=== PATIENT | female | born 1970 | race Caucasian/White ===

== ENCOUNTER → 2016-05-23 | Outpatient (CLI) | payer OTHER ==
[~2016-05-23] MED LIST: ALBUAER19 INH; DEXL60CA4 PO; EFFSR/75 PO; ERGO1CAP41 PO; INDSR60 PO; LEVO25TA PO; MRLP527 PO; ONDA4TAB46 PO; RANI300T PO; SERT-234 PO
== END | disposition home or self-care (01) ==
LOC: C.LAB1850 15:20
PROVIDERS: ATTEND Internal Medicine
DX: E03.9 Hypothyroidism, unspecified (principal)

== ENCOUNTER → 2016-06-28 | Outpatient (CLI) | payer OTHER | END | disposition home or self-care (01) | LOC: C.LABMFLN 07:54 | PROVIDERS: ATTEND Internal Medicine | DX: E03.9 Hypothyroidism, unspecified (principal) ==

== ENCOUNTER → 2016-09-22 | Outpatient (CLI) | payer OTHER ==
[~2016-09-22] MED LIST changes: -ERGO1CAP41 PO; +ERGO500011 PO; -INDSR60 PO; +PROP60CA PO
--- NOTE | 2016-09-26 14:58 | MAMMOGRAPHY REPORT ---
BILATERAL DIGITAL SCREENING MAMMOGRAM TOMOSYNTHESIS WITH CAD: 09/22/2016 CLINICAL HISTORY: Routine screening. Patient has no complaints. TECHNIQUE: Breast tomosynthesis in addition to standard 2D mammography was performed. Current study was also evaluated with a Computer Aided Detection (CAD) system. COMPARISON: Comparison is made to exams dated: 06/27/2013 mammogram, 12/24/2012 mammogram, and 013 mammogram - [facility]. BREAST COMPOSITION: The tissue of both breasts is heterogeneously dense, which may obscure small ma sses. FINDINGS: No suspicious masses, calcifications, or areas of architectural distortion are noted in e ither breast. There has been no significant interval change compared to prior exams. Rounded 13 mm asymmetry within the right lateral breast middle depth on the cc view appears similar to the 2013 ex am and has the appearance of normal fibroglandular tissue on the tomosynthesis images. IMPRESSION: ACR BI-RADS CATEGORY 2: BENIGN There is no mammographic evidence of malignancy. A 1 year screening mammogram is recommended. The p atient will receive written notification of the results. Approximately 10% of breast cancers are not detected with mammography. A negative mammographic repor t should not delay biopsy if a clinically suggestive mass is present. Shayna Ortega M.D. ah/:09/22/2016 15:30:29 Insurance Risk Manager: [employer] [place](Alex)(M), [facility] letter sent: Normal 1/2 BI-RADS Code: ACR BI-RADS Category 2: Benign
== END | disposition home or self-care (01) ==
LOC: C.MAMM 13:13
PROVIDERS: ATTEND Internal Medicine
DX: Z12.31 Encounter for screening mammogram for malignant neoplasm of breast (principal)

== ENCOUNTER → 2016-09-22 | Outpatient (CLI) | payer OTHER ==
--- NOTE | 2016-09-22 09:51 | DIAGNOSTIC IMAGING REPORT ---
RIGHT ELBOW MIN 3 VIEWS ROUTINE CLINICAL HISTORY: M25.529 Elbow [id number] Right COMPARISON: None. DISCUSSION: The bones and joint spaces appear intact. There is no evidence of fracture, dislocation or bony disease. There is no evidence for soft tissue swelling. IMPRESSION: Negative study. Electronically signed by: Carroll Phipps M.D. 09/22/2016 9:50 AM Dictated Date/Time: 09/22/2016 9:49 AM
== END | disposition home or self-care (01) ==
LOC: C.RAD1850 09:37
PROVIDERS: ATTEND Physician Assistant
DX: M25.521 Pain in right elbow (principal)

== ENCOUNTER → 2016-12-27 | Day surgery (SDC) | payer OTHER ==
[2016-12-25 13:08] VITALS: Ht 162.6 cm; Wt 86.4 kg
[~2016-12-27] VITALS: Ht 162.6 cm; Wt 86.4 kg
[~2016-12-27] MED LIST changes: -EFFSR/75 PO; +ERGO1CAP41 PO; -ERGO500011 PO; +INDSR60 PO; -PROP60CA PO; +PROPOFOL IV EMULSION 10 MG/ML 20 ML VIAL IV ONE; +SODIUM CHLORIDE 0.9% 500ML 500 ML IV ONE
--- NOTE | 2016-12-27 14:12 | Endo History and Physical ---
History & Physical Date of Service: Dec 27, 2016. Chief Complaint: acid reflux,abd.and epigastric pain,bloating Referring Physician: Dr. Saldaña History of Present Illness 46 yo CF who presents for EGD secondary to GERD, epigastric abdominal pain and bloating. Past Medical History Arthritis, Anxiety, Reflux, Thyroid Disease Past Surgical History Hx Cardiac Surgery: No Hx Internal Defibrillator: No Hx Pacemaker: No Hx Abdominal Surgery: Yes (ROMA BSO, ECHO) Hx of Implantable Prosthesis: No Hx Post-Op Nausea and Vomiting: Yes Hx Cancer Surgery: No Hx Thoracic Surgery: No Hx Orthopedic: Yes (RT KNEE SURGERY) Hx Urinary Tract Surgery: No Family History Esophogeal CA, Polyp Social History Smoking Status: Former Smoker Hx Substance Use: No Hx Alcohol Use: Yes ("RARELY") Allergies Coded Allergies: Codeine (Verified Allergy, Unknown, GI UPSET, 12/25/16) Cortisone (Verified Allergy, Unknown, LOCAL SWELLING, 12/25/16) Metoclopramide (Verified Allergy, Unknown, DYSKINESIA, 12/27/16) Morphine (Verified Allergy, Unknown, GI UPSET, 12/27/16) Meperidine (Verified Adverse Reaction, Severe, SEVERE NAUSEA AND VOMITING , 12/25/16) Unclassified Drugs (Verified Adverse Reaction, Mild, Neoprene - rash, 12/25) Hydrocodone (Verified Adverse Reaction, Unknown, MEMORY LOSS, 12/25/16) Current Medications Reported Home Medications Medications Dose Route/Sig Max Daily Dose Days Date Category Dose Instructions Propranolol HCl ER (Propranolol HCl) 60 Mg Cap 1 Tab PO HS 12/25/16 Reported Zoloft (Sertraline HCl) 100 Mg Tab 1.5 Tab PO HS 12/25/16 Reported Ventolin Inhaler (Albuterol) Aers 2 Puffs INH Q4 PRN 07/27/14 Reported Polyethylene Glycol 3350 (Polyethylene) 527 Gm Soln 0.5-1 Dose PO DAILY PRN 07/27/14 Reported Zofran (Ondansetron HCl) 4 Mg Tab 4 Mg PO Q8 PRN 07/27/14 Reported Vitamin D 10858 Unit (Ergocalciferol) 50,000 Unit Cap 1 Tab PO WK 10/06/13 Reported TAKE ON WEDNESDAYS Synthroid (Levothyroxine Sodium) 25 Mcg Tab 25 Mcg PO QAM 10/06/13 Reported Zantac (Ranitidine Hcl) 300 Mg Tab 300 Mg PO HS 10/06/13 Reported Dexilant (Dexlansoprazole) 60 Mg Cap 60 Mg PO QAM 10/06/13 Reported Vital Signs Weight (Kilograms): 86.36 Height (Feet): 5 Height (Inches): 4 Date Time Temp Pulse Resp B/P (MAP) Pulse Ox O2 Delivery O2 Flow Rate FiO2 12/27/16 13:42 36.9 66 20 103/75 (84) 97 Room Air Physical Exam General Appearance: WD/WN, no apparent distress Respiratory/Chest: Auscultation: breath sounds normal Cardiovascular: Heart Auscultation: RRR Abdomen: Bowel Sounds: normal Inspection & Palpation: soft, non-distended, no tenderness, guarding & rebound Assessment and Plan Assessment: 46 yo CF who presents for EGD secondary to GERD, epigastric abdominal pain and bloating. Plan: Proceed with EGD.
--- NOTE | 2016-12-27 14:45 | GI REPORT ---
Procedure Date: 12/27/2016 2:15 PM Procedure: Upper GI endoscopy Indications: Epigastric abdominal pain, Gastro-esophageal reflux disease Medicines: Monitored Anesthesia Care Complications: No immediate complications. Estimated Blood Loss: Estimated blood loss: none. Procedure: Pre-Anesthesia Assessment: - Prior to the procedure, a History and Physical was performed, and patient medications and allergies were reviewed. The patient's tolerance of previous anesthesia was also reviewed. The risks and benefits of the procedure and the sedation options and risks were discussed with the patient. All questions were answered, and informed consent was obtained. Prior Anticoagulants: The patient has taken no previous anticoagulant or antiplatelet agents. ASA Grade Assessment: II - A patient with mild systemic disease. After reviewing the risks and benefits, the patient was deemed in satisfactory condition to undergo the procedure. After obtaining informed consent, the endoscope was passed under direct vision. Throughout the procedure, the patient's blood pressure, pulse, and oxygen saturations were monitored continuously. The scope was introduced through the mouth, and advanced to the second part of duodenum. The upper GI endoscopy was accomplished without difficulty. The patient tolerated the procedure well. Findings: The esophagus was normal. A medium-sized hiatus hernia was present. Localized mild inflammation characterized by erythema was found in the gastric antrum. Biopsies were taken with a cold forceps for histology. The examined duodenum was normal. Impression: - Normal esophagus. - Medium-sized hiatus hernia. - Gastritis. Biopsied. - Normal examined duodenum. Recommendation: - Resume previous diet. - Continue present medications. - Await pathology results. - Return to primary care physician as previously scheduled. Abel Aragon, DO 12/27/2016 2:45:13 PM This report has been signed electronically. Note Initiated On: 12/27/2016 2:15 PM I attest to the content of the Intraoperative Record and orders documented therein, exceptions below
--- NOTE | 2016-12-27 14:47 | Discharge Instructions ---
Endoscopy Patient Instructions Date / Procedure(s) Performed Dec 27, 2016. EGD Allergy Information Coded Allergies: Codeine (Verified Allergy, Unknown, GI UPSET, 12/25/16) Cortisone (Verified Allergy, Unknown, LOCAL SWELLING, 12/25/16) Metoclopramide (Verified Allergy, Unknown, DYSKINESIA, 12/27/16) Morphine (Verified Allergy, Unknown, GI UPSET, 12/27/16) Meperidine (Verified Adverse Reaction, Severe, SEVERE NAUSEA AND VOMITING , 12/25/16) Unclassified Drugs (Verified Adverse Reaction, Mild, Neoprene - rash, 12/25) Hydrocodone (Verified Adverse Reaction, Unknown, MEMORY LOSS, 12/25/16) Discharge Date / Findings Dec 27, 2016. Gastritis s/p biopsies Hiatal hernia Medication Instructions OK to resume all medications today as prescribed Reported Home Medications Medications Dose Route/Sig Max Daily Dose Days Date Category Dose Instructions Propranolol HCl ER (Propranolol HCl) 60 Mg Cap 1 Tab PO HS 12/25/16 Reported Zoloft (Sertraline HCl) 100 Mg Tab 1.5 Tab PO HS 12/25/16 Reported Ventolin Inhaler (Albuterol) Aers 2 Puffs INH Q4 PRN 07/27/14 Reported Polyethylene Glycol 3350 (Polyethylene) 527 Gm Soln 0.5-1 Dose PO DAILY PRN 07/27/14 Reported Zofran (Ondansetron HCl) 4 Mg Tab 4 Mg PO Q8 PRN 07/27/14 Reported Vitamin D 83224 Unit (Ergocalciferol) 50,000 Unit Cap 1 Tab PO WK 10/06/13 Reported TAKE ON WEDNESDAYS Synthroid (Levothyroxine Sodium) 25 Mcg Tab 25 Mcg PO QAM 10/06/13 Reported Zantac (Ranitidine Hcl) 300 Mg Tab 300 Mg PO HS 10/06/13 Reported Dexilant (Dexlansoprazole) 60 Mg Cap 60 Mg PO QAM 10/06/13 Reported Provider Instructions Activity Restrictions - No exercising or heavy lifting for 24 hours. - Do not drink alcohol the day of the procedure. - Do not drive a car or operate machinery until the day after the procedure. - Do not make any important decisions or sign important papers in 24 hours after the procedure. Following Day: - Return to full activity which may include returning to work/school. Diet Start your diet with liquids and light foods (jello, soup, juice, toast). Then eat your usual diet if not nauseated. Treatment For Common After Affects For mild abdominal pain, bloating, or excessive gas: - Rest - Eat lightly - Lie on right side Follow-Up Information Follow-up with Dr. Saldaña as scheduled Anesthesia Information What You Should Know You have had a procedure that required some medicine to reduce anxiety and discomfort. This treatment is called moderate sedation. After receiving the treatment, you may be sleepy, but you will be able to breathe on your own. The effects of the treatment may last for several hours. Follow these instructions along with Activity/Diet recommendations noted above: * Do NOT do anything where dizziness or clumsiness would be dangerous. * Rest quietly at home today, then you can be up and about tomorrow. * Have a responsible person stay with you the rest of today. * You may have had an I.V. today. If so, you may take the dressing off later today. Recommendations Call your doctor if: * Trouble breathing * Continuous vomiting for more than 24 hours * Temperature above 101 degrees * Severe abdominal pain or bloating * Pain not relieved by pain medicine ordered * There is increased drainage or redness from any incision * A large amount of rectal bleeding greater than 2-3 tablespoons. (If you had a polyp/s removed or have hemorrhoids, a small amount of blood - from the rectum is to be expected.) * You have any unanswered questions or concerns. IN THE EVENT OF A SERIOUS EMERGENCY, GO TO THE NEAREST EMERGENCY ROOM Your discharge instructions were prepared by provider Abel Aragon. Patient Instructions Signature Page Judi Daniels Patient (or Guardian) Signature/Date: I have read and understand the instructions given to me by my caregivers. Caregiver/RN/Doctor Signature/Date: The above-named patient and/or guardian has received patient instructions on this date. + Original Patient Signature Page (only) stays with chart. Please make copy for patient.
--- NOTE | 2016-12-27 15:05 | Anesthesiology Progress Note ---
Anesthesia Post Op Note Date & Time Dec 27, 2016 at 15:05 Vital Signs Pain Intensity: 0 Vital Signs Past 12 Hours Date Time Temp Pulse Resp B/P (MAP) Pulse Ox O2 Delivery O2 Flow Rate FiO2 12/27/16 15:01 57 16 107/71 (83) 95 Room Air 12/27/16 14:46 60 16 104/75 (85) 97 Room Air 12/27/16 13:42 36.9 66 20 103/75 (84) 97 Room Air Notes Mental Status: alert / awake / arousable, participated in evaluation Pt Amnestic to Procedure: Yes Nausea / Vomiting: adequately controlled Pain: adequately controlled Airway Patency, RR, SpO2: stable & adequate BP & HR: stable & adequate Hydration State: stable & adequate Anesthetic Complications: no major complications apparent
[2016-12-27 15:16] VITALS: BP 108/73; PULSE 53; O2SAT 100
== END | disposition home or self-care (01) ==
LOC: C.GI 13:10
PROVIDERS: ATTEND Internal Medicine
DX: R10.13 Epigastric pain (principal); K21.9 Gastro-esophageal reflux disease without esophagitis; K44.9 Diaphragmatic hernia without obstruction or gangrene; R14.0 Abdominal distension (gaseous); M19.90 Unspecified osteoarthritis, unspecified site; F41.9 Anxiety disorder, unspecified; E07.9 Disorder of thyroid, unspecified; Z87.891 Personal history of nicotine dependence; Z79.899 Other long term (current) drug therapy

== ENCOUNTER → 2017-05-24 | Outpatient (CLI) | payer OTHER ==
[~2017-05-24] MED LIST changes: -ERGO1CAP41 PO; +ERGO500011 PO; -INDSR60 PO; +PROP60CA PO; -PROPOFOL IV EMULSION 10 MG/ML 20 ML VIAL IV ONE; -SODIUM CHLORIDE 0.9% 500ML 500 ML IV ONE
== END | disposition home or self-care (01) ==
LOC: C.LAB1850 14:35
PROVIDERS: ATTEND Internal Medicine
DX: E03.9 Hypothyroidism, unspecified (principal)

== ENCOUNTER → 2017-07-19 | Outpatient (CLI) | payer OTHER | END | disposition home or self-care (01) | LOC: C.LABMFLN 09:21 | PROVIDERS: ATTEND Internal Medicine | DX: E03.9 Hypothyroidism, unspecified (principal) ==

== ENCOUNTER 2017-08-07 13:11 | Emergency (ER) | payer OTHER ==
[~2017-08-07] VITALS: Ht 162.6 cm; Wt 88.2 kg
[~2017-08-07 13:11] MED LIST changes: -MRLP527 PO; -ONDA4TAB46 PO; -PROP60CA PO; +PROP60CA14 PO
[2017-08-07] MEDS ORDERED: MRLP527 PO (14:56)
[2017-08-07] MEDS ORDERED: ONDA4TAB46 PO (14:56)
[2017-08-07] MEDS ORDERED: ONDANSETRON INJ 2 MG/ML 2 ML VIAL IV STA (15:13)
[2017-08-07 15:25] VITALS: O2SAT 98
[2017-08-07] MEDS ORDERED: RIZA10TA18 PO (15:29)
[2017-08-07] MEDS ORDERED: LEVO88TA3 PO (15:29)
[2017-08-07] MEDS ORDERED: DEXL60CA4 PO (15:29)
[2017-08-07] MEDS ORDERED: VNTHFA/IN INH (15:29)
[2017-08-07] MEDS ORDERED: CYAN100020 PO (15:29)
[2017-08-07] MEDS ORDERED: REDCAP2 PO (15:29)
[2017-08-07 15:36] VITALS: Ht 162.6 cm; Wt 88.2 kg
[2017-08-07 15:44] LABS: BASO % 0.3 %; BASO ABS # 0.03 K/uL (0-0.2); EOS % 3.9 %; EOS ABS # 0.36 K/uL (0-0.5); HEMATOCRIT 42.2 % (37-47); HEMOGLOBIN 13.7 g/dL (12.0-16.0); IG# 0.02 K/uL (0.00-0.02); LYMPH % 22.1 %; LYMPH ABS # 2.02 K/uL (1.2-3.4); MEAN CELL VOLUME 81.9 fL (80-100); MEAN CORPUSCULAR HEMOGLOBIN 26.6 pg (25-34); MEAN CORPUSCULAR HGB CONC 32.5 g/dl (32-36); MONO % 5.7 %; MONO ABS # 0.52 K/uL (0.11-0.59); NEUT % 67.8 %; NEUT ABS # 6.18 K/uL (1.4-6.5); PLATELET COUNT 288 K/uL (130-400); RED CELL DISTRIBUTION WIDTH CV 14.6 % (11.5-14.5); WHITE BLOOD COUNT 9.13 K/uL (4.8-10.8)
--- NOTE | 2017-08-07 15:51 | DIAGNOSTIC IMAGING REPORT ---
CHEST ONE VIEW PORTABLE HISTORY: 47 years-old Female EVALUATE WEAKNESS acute weakness COMPARISON: Chest radiographs 03/18/2009, CT abdomen and pelvis 10/06/2013 TECHNIQUE: Portable AP view of the chest FINDINGS: Cardiomediastinal and hilar silhouettes are within normal limits. Moderate sized hiatal hernia. No pneumothorax, pleural effusion, focal airspace consolidation or overt pulmonary edema. Bones of the chest appear grossly intact. IMPRESSION: 1. No acute process of the chest. 2. Moderate sized hiatal hernia. The above report was generated using voice recognition software. It may contain grammatical, syntax or spelling errors. Electronically signed by: Dmitriy Rider M.D. 08/07/2017 3:50 PM Dictated Date/Time: 08/07/2017 3:49 PM
[2017-08-07 16:01] LABS: CALCIUM 9.5 mg/dl (8.5-10.1); CREATININE 0.98 mg/dl (0.60-1.20); POTASSIUM 3.6 mmol/L (3.5-5.1)
[2017-08-07 16:12] LABS: PHOSPHORUS 3.5 mg/dl (2.5-4.9)
[2017-08-07] MEDS ORDERED: LEVO100T PO (16:52)
--- NOTE | 2017-08-07 16:56 | EMERGENCY ROOM VISIT NOTE ---
History Report prepared by Jeffrey: Bandar Jara Under the Supervision of: Dr. eSlvin Tilley M.D. First contact with patient: 14:54 Chief Complaint: DIZZY Stated Complaint: DIZZY, CAN'T REMEMBER FALLING ASLEEP History of Present Illness The patient is a 47 year old white female with a past medical history of migraines, GERD, hypothyroid, s/p hysterectomy, s/p cholecystectomy, chronic constipation, endometriosis, and gastroparesis who presents to the ED with a cc of constant generalized fatigue beginning three days ago. She states "I can't concentrate or think straight". Last normal bowel movement was this morning. Positive neck pain and nausea. Negative diarrhea, urinary symptoms, or vomiting. She denies any recent falls or trauma. She does not take blood thinners. Patient recently changed the way she is taking her Levothyroxine (not taking it with other meds). She did not have a flu shot this year. Source of History: patient Onset: Three days ago Position: other (generalized) Quality: other (fatigue) Timing: constant Associated Symptoms: + neck pain, + nausea, No vomiting, No diarrhea, No urinary symptoms Review of Systems See HPI for pertinent positives and negatives. A total of ten systems were reviewed and were otherwise negative. Past Medical & Surgical Medical Problems: (1) Chronic constipation (2) Endometriosis (3) Gastroparesis (4) GERD (gastroesophageal reflux disease) (5) Hiatal hernia (6) Hypothyroidism Surgical Problems: (1) S/P cholecystectomy Family History No pertinent family history stated. Social History Smoking Status: Former Smoker Housing Status: lives with family Occupation Status: employed Current/Historical Medications Scheduled Cyanocobalamin (Vitamin B12), 1,000 MCG PO DAILY Dexlansoprazole (Dexilant), 60 MG PO QAM Ergocalciferol (Vitamin D 42556 Unit), 1 TAB PO WK Levothyroxine Sodium (Synthroid), 1 TAB PO DAILY Propranolol HCl (Propranolol HCl ER), 1 TAB PO HS Ranitidine Hcl (Zantac), 300 MG PO HS Red Yeast Rice Extract (Red Yeast Rice), 1 CAP PO DAILY Rizatriptan Benzoate (Maxalt), 10 MG PO PRN UD Sertraline (Zoloft), 200 MG PO HS Scheduled PRN Albuterol Hfa (Ventolin Hfa), 2 PUFFS INH Q6H PRN for SOB/Wheezing Ondansetron Hcl (Zofran), 4 MG PO Q8 PRN for Nausea Polyethylene (Polyethylene Glycol 3350), 0.5-1 DOSE PO DAILY PRN for MAINTAIN SOFT STOOL Allergies Coded Allergies: Codeine (Verified Allergy, Unknown, GI UPSET, 12/25/16) Cortisone (Verified Allergy, Unknown, LOCAL SWELLING, 12/25/16) Metoclopramide (Verified Allergy, Unknown, DYSKINESIA, 12/27/16) Morphine (Verified Allergy, Unknown, GI UPSET, 12/27/16) Meperidine (Verified Adverse Reaction, Severe, SEVERE NAUSEA AND VOMITING , 12/25/16) Unclassified Drugs (Verified Adverse Reaction, Mild, Neoprene - rash, 12/25) Hydrocodone (Verified Adverse Reaction, Unknown, MEMORY LOSS, 12/25/16) Physical Exam Vital Signs Date Time Temp Pulse Resp B/P (MAP) Pulse Ox O2 Delivery O2 Flow Rate FiO2 08/07/17 17:14 36.9 63 20 115/60 98 08/07/17 16:48 63 20 115/60 98 Room Air 08/07/17 15:42 62 20 113/60 98 Room Air 08/07/17 15:25 98 Room Air 08/07/17 13:32 36.9 68 20 109/72 98 Room Air Physical Exam GENERAL: Awake, alert, well-appearing, NAD. Wearing glasses. HENT: Normocephalic, atraumatic. EYES: Normal conjunctiva. Sclera non-icteric. NECK: Supple. No nuchal rigidity. FROM. RESPIRATORY: CTAB, no rhonchi, wheezing, crackles CARDIAC: RRR, no MRG ABDOMEN: Obese. Soft, NTND, BS+ MSK: No chest wall TTP, no LE edema NEURO: GCS 15, CN 2-12 intact, moves all 4s on command SKIN: No rash or jaundice noted. Medical Decision & Procedures ER Provider Diagnostic Interpretation: Radiology results as stated below per my review and radiologist interpretation: CHEST ONE VIEW PORTABLE FINDINGS: Cardiomediastinal and hilar silhouettes are within normal limits. Moderate sized hiatal hernia. No pneumothorax, pleural effusion, focal airspace consolidation or overt pulmonary edema. Bones of the chest appear grossly intact. IMPRESSION: 1. No acute process of the chest. 2. Moderate sized hiatal hernia. The above report was generated using voice recognition software. It may contain grammatical, syntax or spelling errors. Electronically signed by: Dmitriy Rider M.D. 08/07/2017 3:50 PM Laboratory Results 08/07/17 15:30 Red Blood Count 5.15, Mean Corpuscular Volume 81.9, Mean Corpuscular Hemoglobin 26.6, Mean Corpuscular Hemoglobin Concent 32.5, Mean Platelet Volume 10.0, Neutrophils (%) (Auto) 67.8, Lymphocytes (%) (Auto) 22.1, Monocytes (%) (Auto) 5.7, Eosinophils (%) (Auto) 3.9, Basophils (%) (Auto) 0.3, Neutrophils # (Auto) 6.18, Lymphocytes # (Auto) 2.02, Monocytes # (Auto) 0.52, Eosinophils # (Auto) 0.36, Basophils # (Auto) 0.03 08/07/17 15:30 Test 08/07/17 15:25 08/07/17 15:30 Urine Color DK YELLOW Urine Appearance CLEAR (CLEAR) Urine pH 5.5 (4.5-7.5) Urine Specific [place] 1.029 (1.000-1.030) Urine Protein NEG (NEG) Urine Glucose (UA) NEG (NEG) Urine Ketones NEG (NEG) Urine Occult Blood NEG (NEG) Urine Nitrite NEG (NEG) Urine Bilirubin NEG (NEG) Urine Urobilinogen NEG (NEG) Urine Leukocyte Esterase SMALL (NEG) Urine WBC (Auto) 5-10 /hpf (0-5) Urine RBC (Auto) 0-4 /hpf (0-4) Urine Hyaline Casts (Auto) 1-5 /lpf (0-5) Urine Epithelial Cells (Auto) >30 /lpf (0-5) Urine Bacteria (Auto) NEG (NEG) White Blood Count 9.13 K/uL (4.8-10.8) Red Blood Count 5.15 M/uL (4.2-5.4) Hemoglobin 13.7 g/dL (12.0-16.0) Hematocrit 42.2 % (37-47) Mean Corpuscular Volume 81.9 fL (80-100) Mean Corpuscular Hemoglobin 26.6 pg (25-34) Mean Corpuscular Hemoglobin Concent 32.5 g/dl (32-36) Platelet Count 288 K/uL (130-400) Mean Platelet Volume 10.0 fL (7.4-10.4) Neutrophils (%) (Auto) 67.8 % Lymphocytes (%) (Auto) 22.1 % Monocytes (%) (Auto) 5.7 % Eosinophils (%) (Auto) 3.9 % Basophils (%) (Auto) 0.3 % Neutrophils # (Auto) 6.18 K/uL (1.4-6.5) Lymphocytes # (Auto) 2.02 K/uL (1.2-3.4) Monocytes # (Auto) 0.52 K/uL (0.11-0.59) Eosinophils # (Auto) 0.36 K/uL (0-0.5) Basophils # (Auto) 0.03 K/uL (0-0.2) RDW Standard Deviation 44.0 fL (36.4-46.3) RDW Coefficient of Variation 14.6 % (11.5-14.5) Immature Granulocyte % (Auto) 0.2 % Immature Granulocyte # (Auto) 0.02 K/uL (0.00-0.02) Anion Gap 4.0 mmol/L (3-11) Est Creatinine Clear Calc Drug Dose 75.5 ml/min Estimated GFR () 79.1 Estimated GFR (Non- 68.2 BUN/Creatinine Ratio 12.5 (10-20) Calcium Level 9.5 mg/dl (8.5-10.1) Phosphorus Level 3.5 mg/dl (2.5-4.9) Magnesium Level 2.4 mg/dl (1.8-2.4) Thyroid Stimulating Hormone (TSH) 5.880 uIu/ml (0.300-4.500) Free Thyroxine 1.05 ng/dl (0.80-1.60) Total Triiodothyronine 0.88 ng/ml (0.60-1.81) Laboratory results reviewed by me Medications Administered Medications (Trade) Dose Ordered Sig/Elidia Route Start Time Stop Time Status Last Admin Dose Admin Ondansetron HCl (Zofran Inj) 4 mg NOW STAT IV 08/07/17 15:13 08/07/17 15:15 DC 08/07/17 15:44 4 MG ECG Per My Interpretation Indication: other (dizzy) Rate (beats per minute): 62 Rhythm: normal sinus Findings: T-wave inversion (lead 3. ), other (Normal intervals. Normal axis. No other STS changes or TWI. ) ED Course 1509: The patient was evaluated in room C2B. A complete history and physical exam was performed. 1635: I reevaluated the patient. Discussed results and discharge instructions: she verbalized understanding and agreement. The patient is ready for discharge. Medical Decision Nursing notes reviewed. Ancillary studies and prior records reviewed. The patient is a 47 year old white female with a past medical history of migraines, GERD, hypothyroid, s/p hysterectomy, s/p cholecystectomy, chronic constipation, endometriosis, and gastroparesis who presents to the ED with a cc of constant generalized fatigue beginning three days ago. Differential diagnosis: Etiologies such as metabolic, infection, hypoglycemia, electrolyte abnormalities , cardiac sources, intracerebral event, toxicologic, neurologic, as well as others were entertained. Patient was seen and evaluated the bedside. Patient was feeling kind of fatigued and out of it. Patient noted that she has had some issues with thyroid in the past. Patient denies any recent changes to medications. Patient denies any chest pains, shortness of breath, abdominal pain, nausea, vomiting. Patient has had no issues with urine output, urinary symptoms, or issues with defecation. Patient did have blood work completed along with an EKG, TSH, chest x-ray. Patient did have a notable elevated TSH. I did send additional T3 and T4 studies. I stated that this may be a reflection that the patient needs to increase her thyroxine. Patient was told to stop her current medication and was prescribed a next dose up which was 100 mcg daily. Patient was told to follow-up with her PCP for further management and treatment. Patient was given strict follow-up, discharge, and return precautions. All questions were answered. Patient was deemed suitable for outpatient follow-up at this time. Patient agreed with the plan of care and was safely discharged home. Medication Reconcilliation Current Medication List: was personally reviewed by me Blood Pressure Screening Patient's blood pressure: Normal blood pressure Blood pressure disposition: Did not require urgent referral Impression Primary Impression: Hypothyroidism Additional Impression: Fatigue Scribe Attestation The scribe's documentation has been prepared under my direction and personally reviewed by me in its entirety. I confirm that the note above accurately reflects all work, treatment, procedures, and medical decision making performed by me. Departure Information Dispostion Home / Self-Care Prescriptions Levothyroxine Sodium (SYNTHROID) 100 Mcg Tab 1 TAB PO DAILY for 30 Days, #30 TAB 1 Refill Prov: Selvin Tilley M.D. 08/07/17 Referrals RV. Cam MD (PCP) Patient Instructions ED Hypothyroidism, My [facility] Additional Instructions Please return to the emergency department if you have worsening or recurrent symptoms not amenable to at-home treatment. Please call for a follow-up appointment with her primary care physician. Please take your medications as prescribed. If you have other concerns and/or complaints please feel free to also call your primary care physician's office or return the ED for further evaluation, management, and treatment. Stop taking your 88 mcg Synthroid. Try starting the 100 mcg Synthroid. This was sent as a prescription. Please follow-up with your primary care physician for further testing and treatment. You have been examined and treated today on an emergency basis only. This is not a substitute for, or an effort to provide, complete comprehensive medical care. It is impossible to recognize and treat all injuries or illnesses in a single emergency department visit. It is therefore important that you follow up closely with [facility], your PCP, and/or your specialist(s). Call as soon as possible for an appointment. Thank you for your time and consideration. I look forward to speaking with you again soon. Please don't hesitate to call us if you have any questions. Problem Qualifiers Primary Impression: Hypothyroidism Hypothyroidism type: unspecified Qualified Codes: E03.9 - Hypothyroidism, unspecified Additional Impression: Fatigue Fatigue type: unspecified Qualified Codes: R53.83 - Other fatigue
[2017-08-07 17:14] VITALS: BP 115/60; PULSE 63; TEMP 36.9; O2SAT 98
== END 2017-08-07 17:14 | disposition home or self-care (01) ==
LOC: C.EDB 13:12 → C.EDC 17:14
DX: E03.9 Hypothyroidism, unspecified (principal); R53.83 Other fatigue; K21.9 Gastro-esophageal reflux disease without esophagitis; Z90.710 Acquired absence of both cervix and uterus; Z90.49 Acquired absence of other specified parts of digestive tract; K31.84 Gastroparesis; Z87.891 Personal history of nicotine dependence; Z79.899 Other long term (current) drug therapy; Z88.5 Allergy status to narcotic agent; Z88.8 Allergy status to other drugs, medicaments and biological substances

== ENCOUNTER → 2017-12-03 | Outpatient (CLI) | payer OTHER ==
[~2017-12-03] MED LIST changes: -ALBUAER19 INH; +CYAN100020 PO; +LEVO100T PO; -LEVO25TA PO; +MRLP527 PO; +ONDA4TAB46 PO; +REDCAP2 PO; +RIZA10TA18 PO; +VNTHFA/IN INH
--- NOTE | 2017-12-03 13:44 | DIAGNOSTIC IMAGING REPORT ---
TWO VIEW CHEST CLINICAL HISTORY: Dyspnea.. FINDINGS: PA and lateral chest radiographs are compared to study dated 08/07/2017. The cardiomediastinal silhouette is unremarkable. A hiatal hernia is noted. The lungs and pleural spaces are clear. There is no pneumothorax. The bony thorax appears intact. Cholecystectomy clips are seen in the right upper quadrant. IMPRESSION: 1. No active disease in the chest. 2. Hiatal hernia. Electronically signed by: Adam Berumen M.D. 12/03/2017 1:43 PM Dictated Date/Time: 12/03/2017 1:42 PM
== END | disposition home or self-care (01) ==
LOC: C.LAB1850 13:20
PROVIDERS: ATTEND Physician Assistant
DX: R06.02 Shortness of breath (principal)